=== PATIENT | male | born 1985 | race American Indian/Alaskan Native ===

== ENCOUNTER 2022-02-14 03:28 | Emergency (ER) | payer SELFPAY ==
[2022-02-14] MEDS ORDERED: ASPIRIN 81 MG TAB CHEW PO ONE (03:55)
--- NOTE | 2022-02-14 04:14 | XRay Report ---
CHEST 1 VIEW 02/14/2022 3:56 AM INDICATION / CLINICAL INFORMATION: Chest Pain. COMPARISON: None available. FINDINGS: SUPPORT DEVICES: None. HEART / MEDIASTINUM: No significant abnormality. LUNGS / PLEURA: No significant pulmonary or pleural abnormality. No pneumothorax. ADDITIONAL FINDINGS: No significant additional findings. IMPRESSION: 1. No acute findings. Signer Name: Bradley Patel DO Signed: 02/14/2022 4:09 AM Workstation Name: [id number]
[2022-02-14 05:06] LABS: Hematocrit 44.7 % (35.5-45.6); Hemoglobin 14.5 gm/dl (11.8-15.2); Mean Corpuscular HGB Conc 32 % (32-34); Mean Corpuscular Volume 95 fl (84-94); Platelet Count 340 K/mm3 (140-440); Red Cell Distribution Width 14.4 % (13.2-15.2)
[2022-02-14 05:07] LABS: Alanine Aminotransferase 33 units/L (7-56); Albumin 4.4 g/dL (3.9-5); BUN/Creatinine Ratio 12; Blood Urea Nitrogen 13 mg/dL (9-20); Hemolysis Index 88
[2022-02-14] MEDS ORDERED: KETOROLAC 30 MG/1 ML INJ IV ONE (05:32)
--- NOTE | 2022-02-14 05:35 | Emergency Department Report ---
ED Chest Pain HPI - General Chief Complaint: Chest Pain Stated Complaint: CHEST PAIN PUI?: No Time Seen by Provider: 02/14/22 03:58 Source: patient Mode of arrival: Stretcher Limitations: No Limitations - History of Present Illness Initial Comments: Patient is a 36-year-old male presented ED with complaint of sharp right-sided c hest pain that began at approximately 1 AM this morning. The pain was nonradiating. He also reports sensation of his tongue swelling and shortness of breath. Denies any history of CAD, SC, CHF, COPD or asthma. MD Complaint: chest pain - Related Data Allergies Allergy/AdvReac Type Severity Reaction Status Date / Time No Known Allergies Allergy Unverified 02/14/22 03:51 Heart Score - HEART Score History: Slightly suspicious EKG: Normal Age: < 45 Risk factors: No known risk factors Troponin: < normal limit HEART Score: 0 - EKG Read Time Time EKG Completed: 04:15 EKG Read Time: 04:20 - Critical Actions Critical Actions: 0-3 pts:0.9-1.7%risk of adverse cardiac event.Candidate for discharge ED Review of Systems ROS: Stated complaint: CHEST PAIN Other details as noted in HPI Comment: All other systems reviewed and negative Constitutional: denies: chills, fever Respiratory: shortness of breath Cardiovascular: chest pain Gastrointestinal: denies: abdominal pain, nausea, diarrhea Genitourinary: denies: urgency, dysuria Skin: denies: rash, lesions Neurological: denies: headache, weakness, paresthesias Psychiatric: denies: anxiety, depression Hematological/Lymphatic: denies: easy bleeding, easy bruising ED Past Medical Hx - Past Medical History Previous Medical History?: Yes Hx Asthma: Yes - Surgical History Past Surgical History?: Yes Additional Surgical History: Spleenectomy - Social History Smoking Status: Never Smoker Substance Use Type: None ED Physical Exam - General Limitations: No Limitations General appearance: alert, in no apparent distress - Head Head exam: Present: atraumatic, normocephalic - Neck Neck exam: Present: normal inspection - Respiratory Respiratory exam: Present: normal lung sounds bilaterally. Absent: respiratory distress - Cardiovascular Cardiovascular Exam: Present: regular rate, normal rhythm. Absent: systolic murmur, diastolic murmur, rubs, gallop - GI/Abdominal GI/Abdominal exam: Present: soft. Absent: distended, tenderness - Rectal Rectal exam: Present: deferred - Extremities Exam Extremities exam: Present: normal inspection. Absent: pedal edema - Neurological Exam Neurological exam: Present: alert, oriented X3 - Psychiatric Psychiatric exam: Present: normal affect, normal mood - Skin Skin exam: Present: warm, dry, intact, normal color ED Course Vital Signs 02/14/22 03:41 Temperature 98 F Pulse Rate 94 H Respiratory 18 Rate Blood Pressure 131/78 O2 Sat by Pulse 98 Oximetry ED Medical Decision Making - Lab Data Result diagrams: 02/14/22 04:08 02/14/22 04:08 - EKG Data -: EKG Interpreted by [facility] EKG shows normal: sinus rhythm, axis, intervals, QRS complexes, ST-T waves Rate: normal - Radiology Data Radiology results: report reviewed No acute cardiopulmonary findings - Medical Decision Making 36-year-old male presenting via EMS with complaint of sharp right-sided chest pain that began at 1 AM. EKG is normal. Chest x-ray is unremarkable. CBC, CMP and troponin are unremarkable. Heart score 0. Patient given IV Toradol for pain. Very low suspicion for ACS or PE. Vital signs are within normal range. Satting 100% on room air with normal work of breathing. He is stable for discharge home with return precautions. Critical care attestation.: If time is entered above; I have spent that time in minutes in the direct care of this critically ill patient, excluding procedure time. ED Disposition Clinical Impression: Nonspecific chest pain Disposition: 01 HOME / SELF CARE / HOMELESS Is pt being admited?: No Does the pt Need Aspirin: No Condition: Stable Instructions: Nonspecific Chest Pain, Adult Time of Disposition: 05:37
[2022-02-14 06:26] VITALS: BP 118/78
[2022-02-14 06:56] LABS: Anisocytosis 1+; Basophils % (Manual) 0 % (0.0-1.8); Total Cells Counted 100
[2022-02-14 06:57] LABS: Platelet Estimate Consistent w Auto
--- NOTE | 2022-02-14 09:47 | Electrocardiograph Report ---
[facility] Test Date: 2022-02-14 Test Time: 04:15:59 Pat Name: KIRSTY SANTOS Department: Room: Gender: M Department [employer]: RKOKU : 1985 Requested By: SATISH ORR Order Number: [id number] Reading MD: Enrique Vasquez Measurements Intervals [place] Rate: 94 P: 36 [place]: 148 QRS: 15 QRSD: 84 T: 25 QT: 336 QTc: 420 Interpretive Statements Sinus rhythm No previous ECG available for comparison Electronically Signed On 02-14-2022 9:47:37 EDT by Enrique Vasquez
== END 2022-02-14 06:26 | disposition home or self-care (01) ==
LOC: ED 03:28
DX: R07.9 Chest pain, unspecified (principal)
CPT/HCPCS: 36415; 71045; 80053; 84484; 85007; 85025; 93005; 96374; 99284; J1885